=== PATIENT | male | born 1955 | race Caucasian/White ===

== ENCOUNTER → 2016-12-12 | Day surgery (SDC) | payer OTHER ==
[~2016-12-12] MED LIST: APEDRIA; ASPIRIN325 M1 PO; ASPIRIN81 MG PO; BENICAR PO; BYETTA5 MCG/0.02 SQ; FLEXERIL10 MG PO; HYDROCODON-ACE1 EAC7 PO; LEVEMIR SUBQ; LEVEMIR100 U/ML SUBQ; METFORMIN HCL500 M1 PO; METFORMIN PO; NAPROSYN500 MG PO; NEURONTIN100 MG PO; NIASPAN PO; NIASPAN1000 M1 PO; PRILOSEC PO; SERTRALINE HCL25 MG PO; SLEEPING; TRAMADOL HCL50 M2 PO; TRICEBA SUBQ; TRILIPIX135 MG PO; VICTOZA0.6 MG/0.1 SQ; VOLTAREN75 MG PO; ZESTRIL5 MG PO; ZOCOR PO; ZOCOR20 MG
--- NOTE | ~2016-12-12 | US6 ---
[facility] A Service of [facility] RADIOLOGY TEXT RESULTS PATIENT: SINDY CLIFFORD LOCATION: CLINICAL ADMINISTRATIVE COORDINATOR : 59 UNIT #: [id number] AGE: [address]: Santy Dempsey MD SEX: M ORDER DR: [id number] [facility] [address] [facility]. [place], [place] [address] [id number] O MR#: [id number] Acc #: [id number] NAME: SINDY CLIFFORD : 1955 SEX: M STUDY DATE/TIME: 12/12/2016 9:43 UNIT: CLINICAL ADMINISTRATIVE COORDINATOR ROOM: STUDY DESCRIPTION: US Abdominal Limited Attending Physician: Santy Dempsey M.D. Ordering Physician: Santy Dempsey M.D. Primary Care Physician: Catracho Miller M.D. MEDICAL IMAGING REPORT This report is preliminary unless electronic signature is present EXAM Right upper quadrant abdominal ultrasound INDICATION Hepatic steatosis and cirrhosis. Observation for hepatocellular carcinoma. PROCEDURE Right upper quadrant ultrasound shell-scale and Doppler imaging. COMPARISON 01/24/2012 FINDINGS Pancreas is not well seen but visualized portions are unremarkable. Unremarkable gallbladder. Right kidney measures 11.5 cm and is normal. The liver shows diffusely increased echotexture. Liver measures approximately 14.1 cm. Common duct not well seen but approximately 3.0 mm in diameter. IMPRESSION Increased liver echotexture in keeping with steatosis. No visible liver mass on submitted images. Dictated by... Wander Lopez M.D. THIS IS AN ELECTRONICALLY VERIFIED REPORT Wander Lopez M.D. at 12/16/2016 9:54 AM ASH/katelin TD: 12/12/2016 11:11 JOB #: [id number] [facility] A Service of [facility] RADIOLOGY TEXT RESULTS PATIENT: SINDY CLIFFORD LOCATION: CLINICAL ADMINISTRATIVE COORDINATOR : 59 UNIT #: [id number] AGE: [address]: Santy Dempsey MD SEX: M ORDER DR: MEDICAL IMAGING REPORT Page 1 of 1 COPY
== END | disposition home or self-care (01) ==
LOC: CGUS 08:20
DX: K74.60 Unspecified cirrhosis of liver (principal); E88.89 Other specified metabolic disorders; Z53.8 Procedure and treatment not carried out for other reasons
CPT/HCPCS: 76705; 82947

== ENCOUNTER → 2017-02-26 | Day surgery (SDC) | payer OTHER ==
--- NOTE | ~2017-02-26 | OR ---
Unit #: [id number] #: [id number] Patient: SINDY CLIFFORD [id number] [address] [address] [id number] O MR#: [id number] NAME: SINDY CLIFFORD ROOM: Date of Procedure: 02/26/2017 Admission Date: 02/26/2017 Surgeon: Santy Dempsey M.D. : 1955 Attending Physician: Santy Dempsey M.D. Primary Care Physician: Catracho Miller M.D. OPERATIVE REPORT PROCEDURE PERFORMED Esophagogastroduodenoscopy with biopsy. INDICATIONS FOR PROCEDURE The patient with history of esophageal varices undergoing evaluation. MEDICATIONS Monitored anesthesia. POSTOPERATIVE FINDINGS 1. No varices seen at this point. 2. Mild gastritis. Biopsies taken. 3. Normal duodenum and distal duodenum. PLAN Follow up on the pathology report. Symptomatic treatment for now. DESCRIPTION OF PROCEDURE The patient was explained of the procedure, risks, and benefits along with risks and benefits of anesthesia. He was brought to the endoscopy room. Propofol anesthesia was given. Bite block was placed. The scope was passed down the mouth into esophagus, stomach, duodenum and distal duodenum. Findings as described. No varices were seen. Gently, I pulled the scope out of the patient's mouth. He tolerated it well. Dictated by... Mounika Dukes/yris TD: 02/27/2017 02:41 JOB #: [id number] CC: . Unit #: [id number] #: [id number] Patient: SINDY CLIFFORD OPERATIVE REPORT Page 1 of 1 X Santy Dempsey MD X PROCEDURE OPERATIVE NOTE
== END | disposition home or self-care (01) ==
LOC: COPS 08:41
DX: K31.9 Disease of stomach and duodenum, unspecified (principal); E11.9 Type 2 diabetes mellitus without complications; I10 Essential (primary) hypertension; K21.9 Gastro-esophageal reflux disease without esophagitis; G47.30 Sleep apnea, unspecified; Z79.84 Long term (current) use of oral hypoglycemic drugs; Z79.82 Long term (current) use of aspirin; Z79.899 Other long term (current) drug therapy; Z87.19 Personal history of other diseases of the digestive system; Z96.653 Presence of artificial knee joint, bilateral; Z96.642 Presence of left artificial hip joint; Z96.611 Presence of right artificial shoulder joint; Z98.890 Other specified postprocedural states
CPT/HCPCS: 82947; 88305; 88312

== ENCOUNTER → 2017-03-31 | Outpatient (CLI) | payer OTHER ==
--- NOTE | ~2017-03-31 | US77 ---
[facility] A Service of [facility] RADIOLOGY TEXT RESULTS PATIENT: SINDY CLIFFORD LOCATION: US : 59 UNIT #: [id number] AGE: [address]: Ajit Alvarez MD SEX: M ORDER DR: [id number] [place] [id number] [facility]. [place], [place] [address] [id number] O MR#: [id number] Acc #: [id number] NAME: SINDY CLIFFORD : 1955 SEX: M STUDY DATE/TIME: 03/31/2017 12:35 UNIT: CGUS ROOM: STUDY DESCRIPTION: US Kidney Bilateral Complete Attending Physician: Ajit Alvarez M.D. Referring Physician: Ajit Alvarez M.D. Ordering Physician: Ajit Alvarez M.D. Primary Care Physician: Catracho Miller M.D. MEDICAL IMAGING REPORT This report is preliminary unless electronic signature is present EXAM Renal ultrasound INDICATION Chronic kidney disease stage 3. TECHNIQUE Goss-scale and color sonographic images were obtained through the kidneys and bladder. FINDINGS Kidneys are normal in appearance. No solid or cystic renal masses are seen and there is no hydronephrosis. The right kidney measures 11.6 cm x 5.4 cm x 5.7 cm, left kidney measures 11.7 cm x 6.2 cm x 5.2 cm. No cortical thinning is seen. The bladder appears unremarkable. IMPRESSION Normal renal ultrasound. Dictated by... Maria Eugenia Lubin M.D. THIS IS AN ELECTRONICALLY VERIFIED REPORT Maria Eugenia Lubin M.D. at 04/02/2017 4:57 PM AFF/leobardo TD: 03/31/2017 23:19 JOB #: [id number] [facility] A Service of [facility] RADIOLOGY TEXT RESULTS PATIENT: SINDY CLIFFORD LOCATION: [facility] : 59 UNIT #: [id number] AGE: [address]: Ajit Alvarez MD SEX: M ORDER DR: MEDICAL IMAGING REPORT Page 1 of 1 COPY
== END | disposition home or self-care (01) ==
LOC: CGUS 12:17
DX: N18.3 Chronic kidney disease, stage 3 (moderate) (principal)
CPT/HCPCS: 76770